=== PATIENT | female | born 1940 | race Caucasian/White ===

== ENCOUNTER 2017-06-13 08:30 | Outpatient (CLI) | payer MEDICARE ==
[2017-06-13 10:32] LABS: PTT 26.5 SEC (22.9-36.1); Prothrombin Time 13.3 SEC (12.0-14.7)
[2017-06-13 10:37] LABS: Anion Gap 9 mmol/L (10-20); BUN (Urea Nitrogen) 19 mg/dL (9.8-20.1); Calc. Creatinine Clearance 0 mL/min (70-130); Calcium 10.2 mg/dL (7.8-10.44); Carbon Dioxide 32 mmol/L (23-31); Chloride 100 mmol/L (98-107); Estimated GFR-MDRD 72
[2017-06-13 11:09] LABS: Bilirubin Negative (Negative); Blood, Urine Negative (Negative); Glucose, Urine (Dipstick) Negative (Negative); Ketone, Urine Negative (Negative); Nitrite Negative (Negative); Protein, Urine (Dipstick) Negative (Neg-Trace); Urobilinogen 0.2 mg/dL (0.2-1.0)
[2017-06-13 11:13] LABS: Bacteria/HPF None Seen HPF (None Seen); Hyaline Casts/LPF 0-3 HYALINE CAST LPF (0-3 Hyaline); RBC/HPF 0-3 HPF (0-3); Squamous Epithelial None Seen HPF (0-3); WBC/HPF None Seen HPF (0-3)
[2017-06-13 11:28] LABS: #Eosinphils 0.1 thou/uL (0.0-0.7); #Lymphocytes 2.1 thou/uL (1.20-3.40); #Monocytes 0.6 thou/uL (0.11-0.59); #Neutrophils 3.6 thou/uL (1.40-6.50); %Basophils 0.5 % (0.0-1.0); %Eosinophils 1.7 % (0.0-10.0); %Lymphocytes 32.2 % (21.0-51.0); %Monocytes 9.2 % (0.0-10.0); Hematocrit 46.4 % (36.0-47.0); Macrocytosis SLIGHT = 6-15 cells (100X) (0-5/hpf); Mean Platelet Volume 8.1 fL (7.4-10.4); Red Blood Cell (RBC) Count 4.33 mill/uL (4.20-5.40); White Blood Cell (WBC) Count 6.4 thou/uL (4.8-10.8)
--- NOTE | 2017-06-13 13:52 | RAD ---
CHEST PA AND LATERAL: History: 76-year-old female for pre-operative evaluation. Comparison: 02-16-16 FINDINGS: Atherosclerotic ectatic changes of the aorta. Old granulomatous disease on the right side. Mild bila teral hyperinflation and chronic changes. No confluent pneumonia, overt edema, or pleural effusion. IMPRESSION: Hyperinflation and chronic lung changes with old granulomatous disease and atherosclerotic ectatic c hanges of the aorta, stable. No acute process. POS: [facility]
== END 2017-06-13 08:31 | disposition home or self-care (01) ==
LOC: LABBT 08:30
PROVIDERS: ATTEND Orthopaedic Surgery
DX: Z01.818 Encounter for other preprocedural examination (principal); M16.12 Unilateral primary osteoarthritis, left hip
CPT/HCPCS: 71020; 80048; 81001; 85025; 85610; 85730; 86850; 86900; 86901; 87081

== ENCOUNTER 2017-08-10 08:00 | Outpatient (CLI) | payer MEDICARE | END 2017-08-10 08:01 | disposition home or self-care (01) | LOC: BICMAMMO 08:00 | PROVIDERS: ATTEND Internal Medicine | DX: Z12.31 Encounter for screening mammogram for malignant neoplasm of breast (principal) | CPT/HCPCS: 77063; G0202; 77067 ==

== ENCOUNTER 2018-08-21 11:44 | Outpatient (CLI) | payer MEDICARE | END 2018-08-21 11:45 | disposition home or self-care (01) | LOC: BICMAMMO 11:44 | PROVIDERS: ATTEND Internal Medicine | DX: Z12.31 Encounter for screening mammogram for malignant neoplasm of breast (principal) | CPT/HCPCS: 77063; 77067 ==

== ENCOUNTER 2018-09-07 09:56 | Outpatient (CLI) | payer MEDICARE ==
[2018-09-07] MEDS ORDERED: ISOVUE-370 76%-LOCM 1 ML ONE (10:09)
--- NOTE | 2018-09-07 14:30 | CT ---
CT PELVIS WITH AND WITHOUT CONTRAST: Date: 09-07-18 History: Right groin mass Technique: Axial CT imaging at 5 mm intervals through the pelvis with and without contrast obtained. FINDINGS: There is atherosclerotic calcification of the infrarenal abdominal aorta and the pelvic arterial bran ches in the region of bilateral common iliac arteries. Partially imaged renal cyst suspected within the medial aspect of the right kidney. However, given in complete assessment, renal ultrasound is advised. This areas of hypodensity measures at least 1.9 cm. Limited assessment of the bowel demonstrates diverticulosis of sigmoid colon and imaged descending co jayson with no evidence for diverticulitis. Bilateral total hip arthroplasties are present. Evaluation of these arthroplasties and of the pelvis and proximal thighs is limited secondary to marked streak artifact. There is fluid expanding the iliopsoas bursa. This is seen at the axial level of the common iliac art [place] and vein just lateral to the vasculature. It then extends superiorly into the pelvis, measuring a t least 8 cm in craniocaudal dimension and up to 5.9 cm in craniocaudal dimension. There is a fluid collection lateral to the proximal femur on the right as well, epicenter in the aquilino on of the greater trochanter and just superior to the greater trochanter. This is poorly assessed sec ondary to streak artifact and measures at least 5.8 cm in transverse dimension. This suggests fluid w ithin an expanded trochanteric bursa. Intraarticular fluid cannot be excluded secondary to streak art ifact and post-operative changes associated with the joint capsule. Limited assessment of the osseous structures demonstrates no acute findings. IMPRESSION: 1. Fluid seen within expanded iliopsoas bursa and trochanteric bursa on the right. The volume of flui d in these region is much greater than typically seen. Findings may be on the basis of sterile or inf ected bursitis. Intraarticular involvement cannot be excluded. Clinical correlation is essential. If clinically warranted, accessing the fluid in the region in the greater trochanter could be performed with ultrasound or CT guidance. 2. Incompletely imaged hypodensity within the midpole of the right kidney medially. A cyst is favored but this in incompletely assessed and thus, renal ultrasound advised. Ivy Mccullough made aware at the time of dictation on 09/07/2018 POS: [facility]
== END 2018-09-07 09:57 | disposition home or self-care (01) ==
LOC: BICCT 09:56
PROVIDERS: ATTEND Internal Medicine Cardiovascular Disease
DX: R19.00 Intra-abdominal and pelvic swelling, mass and lump, unspecified site (principal); N28.89 Other specified disorders of kidney and ureter
CPT/HCPCS: 72194; 82565

== ENCOUNTER 2018-09-18 08:19 | Day surgery (SDC) | payer MEDICARE ==
[2018-09-17 14:30] VITALS: BMI 25.1
[2018-09-18 08:38] LABS: Prothrombin Time 13.1 SEC (12.0-14.7)
[2018-09-18 08:39] LABS: PTT 25.8 SEC (22.9-36.1)
[2018-09-18 08:48] LABS: Hemoglobin 14.9 g/dL (12.0-16.0); Mean Corpuscular HGB CONC 33.1 g/dL (32.0-36.0); Mean Platelet Volume 8.2 fL (7.4-10.4); Platelet Count 204 thou/uL (130-400); RBC Distribution Width 11.2 % (11.5-14.5); Red Blood Cell (RBC) Count 4.25 mill/uL (4.20-5.40); White Blood Cell (WBC) Count 5.7 thou/uL (4.8-10.8)
[2018-09-18 10:03] VITALS: BP 141/72; TEMP 97.5
--- NOTE | 2018-09-18 12:29 | CT ---
CT GUIDED RIGHT PELVIC FLUID COLLECTION DRAINAGE: HISTORY: Right groin mass. Fluid distention of the iliopsoas bursa. Leg discomfort. TECHNIQUE: After explaining the procedure and answering all questions, limited CT imaging of the pelvis was perf ormed. A right anterolateral approach was planned. Sterile technique, buffered local anesthesia, CT guidance, and a right anterior approach were used to carefully advance a 19 gauge Yueh needle and catheter into the inferior margin of the right groin fl uid collection. Approximately 50 mL of medium slightly cloudy yellow fluid was aspirated and eventua lly submitted to pathology for evaluation. Additional fluid was not able to be drained at that locat ion. Some fluid did remain on the imaging. A slightly more superior approach was used to advance a 19 gauge trocar needle into the fluid pocket just anterior to the right iliacus muscle. An additional 45 mL of fluid was drained and submitted to pathology for evaluation. The needle was removed. Post procedure imaging showed complete decompres luiza of the fluid collection. The patient tolerated the procedure well and was returned to the [facility] area in good condition for further monitoring. IMPRESSION: Technically successful CT guided drainage of the right iliopsoas fluid collection. Pathology is pend ing. POS: [facility]
== END 2018-09-18 11:10 | disposition home or self-care (01) ==
LOC: RAD 08:19
PROVIDERS: ATTEND Orthopaedic Surgery
PROC: 0S993ZX Drainage of Right Hip Joint, Percutaneous Approach, Diagnostic (ICD-10-PCS; principal; 2018-09-18)
DX: M70.71 Other bursitis of hip, right hip (principal); Z79.82 Long term (current) use of aspirin; Z79.899 Other long term (current) drug therapy; Z88.5 Allergy status to narcotic agent
CPT/HCPCS: 36415; 77012; 85027; 85610; 85730; 87070; 87205

== ENCOUNTER 2018-11-08 07:36 | Outpatient (CLI) | payer MEDICARE ==
--- NOTE | 2018-11-08 09:14 | MRI ---
MRI CERVICAL SPINE: Multiplanar, multisequential imaging of the cervical spine was obtained. INDICATION: Neck pain and cervical radiculopathy. FINDINGS: Cervical vertebrae maintain normal height and alignment. There are degenerative disk changes through out the cervical spine with loss of disk space at all levels below C3. Vertebral body signal is norm ally maintained. At C3-4, posterior disk bulge and spondylosis flatten the thecal sac and efface the anterior subarach noid space. Mild left foraminal encroachment due to uncinate hypertrophy. At C4-5, posterior disk bulge with spondylosis efface the anterior subarachnoid space. No significan t cord impingement. Bilateral foraminal narrowing due to facet and uncinate hypertrophy. At C5-6, mild disk bulge with spondylosis flatten the thecal sac and efface the anterior subarachnoid space. No significant cord impingement. Mild right foraminal narrowing due to uncinate hypertrophy . At C6-7, there is a slight anterolisthesis measured at 3 mm. There is posterior disk bulge with spon dylosis. These changes efface the anterior subarachnoid space; however, no significant cord impingem ent. Mild left foraminal encroachment due to uncinate hypertrophy. Cord signal is normal. IMPRESSION: Degenerative disk changes throughout the cervical spine from C3 through C7 as described above. Poste rior disk bulge and spondylitic changes at all levels effacing the anterior subarachnoid space with m ild foraminal encroachment as described above. POS: [facility]
== END 2018-11-08 07:37 | disposition home or self-care (01) ==
LOC: TBSIIMAG 07:36
PROVIDERS: ATTEND Neurological Surgery
DX: M50.11 Cervical disc disorder with radiculopathy, high cervical region (principal); M47.22 Other spondylosis with radiculopathy, cervical region
CPT/HCPCS: 72141

== ENCOUNTER 2019-10-03 09:31 | Outpatient (CLI) | payer MEDICARE ==
--- NOTE | 2019-10-03 10:30 | MMO ---
Bilateral MAMMO Bilat Screen [facility]. CLINICAL HISTORY: Patient is 78 years old and is seen for screening. The patient has no family history of breast cancer. The patient has no personal history of cancer. VIEWS: The views performed were: bilateral craniocaudal with tomosynthesis and bilateral mediolateral oblique with tomosynthesis. FILMS COMPARED: The present examination has been compared to prior imaging studies performed at [facility] on 06/15/2015, 07/13/2016, 08/10/2017 and 08/21/2018. This study has been interpreted with the assistance of computer-aided detection. MAMMOGRAM FINDINGS: There are scattered fibroglandular densities. There are no suspicious masses, suspicious calcifications, or new areas of architectural distortion. IMPRESSION: THERE IS NO MAMMOGRAPHIC EVIDENCE OF MALIGNANCY. A ROUTINE FOLLOW-UP MAMMOGRAM IN 1 YEAR IS RECOMMENDED. THE RESULTS OF THIS EXAM WERE SENT TO THE PATIENT. ACR BI-RADS Category 1 - Negative MAMMOGRAPHY NOTE: 1. A negative mammogram report should not delay a biopsy if a dominant of clinically suspicious mass is present. 2. Approximately 10% to 15% of breast cancers are not detected by mammography. 3. Adenosis and dense breasts may obscure an underlying neoplasm. Reported by: JESSIAC WILDER MD Electonically Signed: [id number]
--- NOTE | 2019-10-03 11:52 | BD ---
DEXA BONE DENSITY STUDY: Date: 10/03/2019 HISTORY: Postmenopausal. FINDINGS: Right Forearm: BMD (g/cm2) / 0.590 T-Score: -0.7 Mid 0.397 T-Score: -3.8 Distal 0.368 T-Score: -1.3 Total 0.420 T-Score: -2.9 Left Forearm: 08/16 0.597 T-Score: -1.7 Mid 0.397 T-Score: -3.8 Distal 0.413 T-Score: -0.5 IMPRESSION: Osteopenia of the right and left forearm. POS: [facility]
== END 2019-10-03 09:32 | disposition home or self-care (01) ==
LOC: BICMAMMO 09:31
PROVIDERS: ATTEND Internal Medicine
DX: Z12.31 Encounter for screening mammogram for malignant neoplasm of breast (principal); Z13.820 Encounter for screening for osteoporosis; M94.9 Disorder of cartilage, unspecified; M81.0 Age-related osteoporosis without current pathological fracture
CPT/HCPCS: 77063; 77067; 77080

== ENCOUNTER 2020-10-07 11:05 | Outpatient (CLI) | payer MEDICARE ==
--- NOTE | 2020-10-07 13:56 | MMO ---
Bilateral MAMMO Bilat Screen [facility]. CLINICAL HISTORY: Patient is 79 years old and is seen for screening. The patient has no family history of breast cancer. The patient has no personal history of cancer. VIEWS: The views performed were: bilateral craniocaudal with tomosynthesis and bilateral mediolateral oblique with tomosynthesis. FILMS COMPARED: The present examination has been compared to prior imaging studies performed at [facility] on 07/13/2016, 08/10/2017, 08/21/2018 and 10/03/2019. This study has been interpreted with the assistance of computer-aided detection. MAMMOGRAM FINDINGS: There are scattered fibroglandular densities. There are no suspicious masses, suspicious calcifications, or new areas of architectural distortion. IMPRESSION: THERE IS NO MAMMOGRAPHIC EVIDENCE OF MALIGNANCY. A ROUTINE FOLLOW-UP MAMMOGRAM IN 1 YEAR IS RECOMMENDED. THE RESULTS OF THIS EXAM WERE SENT TO THE PATIENT. ACR BI-RADS Category 1 - Negative MAMMOGRAPHY NOTE: 1. A negative mammogram report should not delay a biopsy if a dominant of clinically suspicious mass is present. 2. Approximately 10% to 15% of breast cancers are not detected by mammography. 3. Adenosis and dense breasts may obscure an underlying neoplasm. Reported by: SHAHEEN JOHN MD Electonically Signed: [id number]
== END 2020-10-07 11:06 | disposition home or self-care (01) ==
LOC: BICMAMMO 11:05
PROVIDERS: ATTEND Internal Medicine
DX: Z12.31 Encounter for screening mammogram for malignant neoplasm of breast (principal)
CPT/HCPCS: 77063; 77067

== ENCOUNTER 2021-07-05 09:29 | Outpatient (CLI) | payer MEDICARE ==
[2021-07-05] MEDS ORDERED: Iopamidol 370 76% 100 ML VIAL ONE (10:57)
== END 2021-07-05 09:30 | disposition home or self-care (01) ==
LOC: CT 09:29
PROVIDERS: ATTEND Surgery
DX: K63.89 Other specified diseases of intestine (principal); N28.1 Cyst of kidney, acquired; K57.30 Diverticulosis of large intestine without perforation or abscess without bleeding
CPT/HCPCS: 74177; 82565

== ENCOUNTER 2021-07-09 11:52 | Outpatient (CLI) | payer MEDICARE ==
[2021-07-09 23:20] LABS: SARS-CoV-2 PCR by NAA Not Detected (NotDetected)
== END 2021-07-09 11:53 | disposition home or self-care (01) ==
LOC: LABBT 11:52
PROVIDERS: ATTEND Surgery
DX: Z01.812 Encounter for preprocedural laboratory examination (principal); K63.89 Other specified diseases of intestine; Z20.822 Contact with and (suspected) exposure to COVID-19
CPT/HCPCS: U0003; U0005

== ENCOUNTER 2021-07-09 12:00 | Inpatient (IN) | payer MEDICARE ==
[2021-07-13] MEDS ORDERED: cefOXitin Sodium/Dextrose 2 GM/50 ML BAG ONE (08:17)
[2021-07-13] MEDS ORDERED: Lidocaine 1% (PF) 30 ML VIAL ONE (09:16)
[2021-07-13] MEDS ORDERED: Fentanyl 100 MCG/2 ML VIAL ONE ×4 (09:16→14:56)
[2021-07-13] MEDS ORDERED: Midazolam HCl 2 mg/2 ml Vial ONE (09:16)
[2021-07-13] MEDS ORDERED: Phenylephrine 10 MG/ML VIAL ONE (11:24)
[2021-07-13] MEDS ORDERED: Dexamethasone 20 MG/5 ML VIAL ONE (11:25)
[2021-07-13] MEDS ORDERED: Ondansetron PF 4 MG/2 ML Vial ONE (11:25)
[2021-07-13] MEDS ORDERED: Bupivacaine HCl 0.5%/Epinephrine 1:200,000/PF 30 ml Vial ONE ×2 (11:25)
[2021-07-13] MEDS ORDERED: Glycopyrrolate 0.2 MG/ML 5 ML SYRINGE ONE (11:25)
[2021-07-13] MEDS ORDERED: Lidocaine 1% PF 5 ML VIAL ONE (11:25)
[2021-07-13] MEDS ORDERED: PHENYLEPHRINE-NS 100 MCG/ML 10 ML SYRINGE ONE (11:25)
[2021-07-13] MEDS ORDERED: PROPOFOL 200 MG/20 ML VIAL ONE (11:25)
[2021-07-13] MEDS ORDERED: Rocuronium Bromide 10 MG/ML (10ML VIAL) ONE (11:25)
[2021-07-13] MEDS ORDERED: Ondansetron HCl/PF 4 MG/2 ML Vial IVP PRN (12:35)
[2021-07-13] MEDS ORDERED: Promethazine HCl 25 MG/ML VIAL IM PRN ×2 (12:35→15:10)
[2021-07-13] MEDS ORDERED: Promethazine HCl 25 MG/ML VIAL IVPB PRN (12:35)
[2021-07-13] MEDS ORDERED: Fentanyl 100 MCG/2 ML VIAL SLOW IVP PRN (15:10)
[2021-07-13] MEDS ORDERED: cefOXitin Sodium 1 GM in Sodium Chloride 0.9% 100 ML IVPB SCH (15:10)
[2021-07-13] MEDS ORDERED: hydrALAZINE 20 MG/ML VIAL SLOW IVP PRN (15:10)
[2021-07-13] MEDS ORDERED: Ondansetron PF 4 MG/2 ML Vial IVP PRN (15:10)
[2021-07-13 15:30] VITALS: BMI 23.0
[2021-07-13] MEDS ORDERED: Methyl Salicylate/Menthol 85 GM TUBE TOP PRN (16:07)
[2021-07-13] MEDS: D5 1/2 NS w/20 mEq KCL 1,000 ML IV SCH (18:38)
[2021-07-13] MEDS: traMADol HCl 50 MG TAB PO PRN (18:46)
[2021-07-13] MEDS: Montelukast Sodium 10 mg Tablet PO SCH (22:49)
[2021-07-13] MEDS: Famotidine/PF 20 mg/2ml Vial SLOW IVP SCH (22:49)
[2021-07-13] MEDS: cefOXitin Sodium 1 GM in Sodium Chloride 0.9% 100 ML IVPB SCH (22:54)
[2021-07-13] MEDS: Acetaminophen 500 MG TAB PO PRN (22:55)
[2021-07-13] MEDS: Famotidine 20 MG TAB PO SCH (23:21)
[2021-07-14] MEDS: traMADol HCl 50 MG TAB PO PRN ×4 (02:48→23:58)
[2021-07-14] MEDS: cefOXitin Sodium 1 GM in Sodium Chloride 0.9% 100 ML IVPB SCH (05:08)
[2021-07-14] MEDS: Levothyroxine Sodium 50 MCG TAB PO SCH (05:08)
[2021-07-14] MEDS: D5 1/2 NS w/20 mEq KCL 1,000 ML IV SCH (05:16)
[2021-07-14 06:13] LABS: #Lymphocytes 1.4 thou/uL (1.20-3.40); #Monocytes 0.9 thou/uL (0.11-0.59); #Neutrophils 6.8 thou/uL (1.40-6.50); %Basophils 0.2 % (0.0-1.0); %Eosinophils 0.1 % (0.0-10.0); %Lymphocytes 15.6 % (21.0-51.0); %Monocytes 9.9 % (0.0-10.0); %Neutrophils 74.2 % (42.0-75.0); Hemoglobin 12.5 g/dL (12.0-16.0); Mean Corpuscular HGB CONC 34.1 g/dL (32.0-36.0); Mean Corpuscular Hemoglobin 36.4 pg (27.0-31.0); Mean Platelet Volume 7.5 fL (7.4-10.4); Platelet Count 208 thou/uL (130-400); RBC Distribution Width 11.8 % (11.5-14.5); Red Blood Cell (RBC) Count 3.45 mill/uL (4.20-5.40); White Blood Cell (WBC) Count 9.2 thou/uL (4.8-10.8)
[2021-07-14 06:31] LABS: Anion Gap 11 mmol/L (10-20); BUN (Urea Nitrogen) 9 mg/dL (9.8-20.1); Calc. Creatinine Clearance 52 mL/min (70-130); Calcium 8.5 mg/dL (7.8-10.44); Carbon Dioxide 24 mmol/L (23-31); Chloride 102 mmol/L (98-107); Glucose 141 mg/dL (83-110); Potassium 4.4 mmol/L (3.5-5.1); Sodium 133 mmol/L (136-145)
[2021-07-14] MEDS: Acetaminophen 500 MG TAB PO PRN ×3 (08:47→23:58)
[2021-07-14] MEDS: Famotidine 20 MG TAB PO SCH ×2 (08:48→19:45)
[2021-07-14] MEDS: Enoxaparin Sodium 40 MG/0.4 ML SYRINGE SC SCH (08:49)
[2021-07-14] MEDS: Amlodipine 5 MG TAB PO SCH (08:55)
[2021-07-14] MEDS: Famotidine/PF 20 mg/2ml Vial SLOW IVP SCH ×2 (08:58→19:41)
[2021-07-14] MEDS ORDERED: D5 1/2 NS w/20 mEq KCL 1,000 ML IV SCH (11:32)
[2021-07-14] MEDS: Montelukast Sodium 10 mg Tablet PO SCH (19:45)
[2021-07-15] MEDS: Levothyroxine Sodium 50 MCG TAB PO SCH (05:47)
[2021-07-15] MEDS: traMADol HCl 50 MG TAB PO PRN (06:24)
[2021-07-15] MEDS: Acetaminophen 500 MG TAB PO PRN (06:24)
[2021-07-15] MEDS: Famotidine 20 MG TAB PO SCH (09:49)
[2021-07-15] MEDS: Amlodipine 5 MG TAB PO SCH (09:49)
[2021-07-15] MEDS: Enoxaparin Sodium 40 MG/0.4 ML SYRINGE SC SCH (09:50)
[2021-07-15] MEDS: Famotidine/PF 20 mg/2ml Vial SLOW IVP SCH (09:50)
[2021-07-15 11:20] VITALS: BP 132/66; TEMP 98.2
== END 2021-07-15 13:05 | disposition home or self-care (01) | DRG 331 ==
LOC: EDSTATUS 12:00 → SURG A 07-13 07:52 → SURG B 07-13 17:43
PROVIDERS: ADMIT Surgery; ATTEND Surgery
PROC: 0DBF4ZZ Excision of Right Large Intestine, Percutaneous Endoscopic Approach (ICD-10-PCS; principal; 2021-07-13)
PROC: 8E0WXBZ Computer Assisted Procedure of Trunk Region (ICD-10-PCS; 2021-07-13)
DX: C18.0 Malignant neoplasm of cecum (principal); Z20.822 Contact with and (suspected) exposure to COVID-19; E03.9 Hypothyroidism, unspecified; M35.3 Polymyalgia rheumatica; K58.9 Irritable bowel syndrome, unspecified; M19.90 Unspecified osteoarthritis, unspecified site; H26.9 Unspecified cataract; J45.909 Unspecified asthma, uncomplicated; Z96.643 Presence of artificial hip joint, bilateral; Z96.651 Presence of right artificial knee joint; I25.10 Atherosclerotic heart disease of native coronary artery without angina pectoris; Z79.890 Hormone replacement therapy; Z79.82 Long term (current) use of aspirin; Z79.899 Other long term (current) drug therapy; Z90.710 Acquired absence of both cervix and uterus; Z88.5 Allergy status to narcotic agent
CPT/HCPCS: 36415; 36416; 80048; 85025; 88309; 88312; 88342; J0694; J1100; J1650; J2001; J2250; J2370; J2405; J2704; J3010; J3480; J3490; S0028

== ENCOUNTER 2021-08-20 10:46 | Outpatient (CLI) | payer MEDICARE ==
[2021-08-21 17:02] LABS: SARS-CoV-2 PCR by NAA Not Detected (NotDetected)
== END 2021-08-20 10:47 | disposition home or self-care (01) ==
LOC: LABBT 10:46
PROVIDERS: ATTEND Surgery
DX: Z01.812 Encounter for preprocedural laboratory examination (principal); C18.9 Malignant neoplasm of colon, unspecified; Z20.822 Contact with and (suspected) exposure to COVID-19
CPT/HCPCS: U0003; U0005

== ENCOUNTER 2021-08-25 09:01 | Day surgery (SDC) | payer MEDICARE ==
[2021-08-20 09:51] VITALS: BMI 23.3
[2021-08-25] MEDS ORDERED: Xylocaine 1% w/ Epi 1:100K 10 ML VIAL ONE (10:30)
[2021-08-25] MEDS ORDERED: Bupivacaine 0.25% 10 ML VIAL ONE (10:30)
[2021-08-25] MEDS ORDERED: Fentanyl 100 MCG/2 ML VIAL ONE (10:31)
[2021-08-25] MEDS ORDERED: Midazolam HCl 2 mg/2 ml Vial ONE (10:31)
[2021-08-25] MEDS ORDERED: ceFAZolin 2 GM/Dextrose 50 ML IVPB ONE (10:41)
[2021-08-25] MEDS ORDERED: PROPOFOL 200 MG/20 ML VIAL ONE (11:02)
== END 2021-08-25 12:30 | disposition home or self-care (01) ==
LOC: SDC 09:01
PROVIDERS: ATTEND Surgery
PROC: 0JH60WZ Insertion of Totally Implantable Vascular Access Device into Chest Subcutaneous Tissue and Fascia, Open Approach (ICD-10-PCS; principal; 2021-08-25)
PROC: 02HV33Z Insertion of Infusion Device into Superior Vena Cava, Percutaneous Approach (ICD-10-PCS; 2021-08-25)
DX: C18.9 Malignant neoplasm of colon, unspecified (principal); E03.9 Hypothyroidism, unspecified; G89.29 Other chronic pain; M54.9 Dorsalgia, unspecified; M19.90 Unspecified osteoarthritis, unspecified site; M85.80 Other specified disorders of bone density and structure, unspecified site; J45.909 Unspecified asthma, uncomplicated; G25.81 Restless legs syndrome; Z79.82 Long term (current) use of aspirin; Z79.899 Other long term (current) drug therapy; Z88.5 Allergy status to narcotic agent; Z90.49 Acquired absence of other specified parts of digestive tract
CPT/HCPCS: 36561; 71045; C1788; J0690; J1642; J2250; J2704; J3010; S0020

== ENCOUNTER 2022-03-28 14:03 | Emergency (ER) | payer MEDICARE ==
[2022-03-28] MEDS ORDERED: traMADol HCl 50 MG TAB ONE (16:20)
[2022-03-28 16:25] LABS: #Eosinphils 0.1 thou/uL (0.0-0.7); #Lymphocytes 1.5 thou/uL (1.20-3.40); #Monocytes 0.6 thou/uL (0.11-0.59); #Neutrophils 7.3 thou/uL (1.40-6.50); %Basophils 0.5 % (0.0-1.0); %Eosinophils 0.6 % (0.0-10.0); %Lymphocytes 16.1 % (21.0-51.0); %Monocytes 6.4 % (0.0-10.0); %Neutrophils 76.4 % (42.0-75.0); Hemoglobin 13.8 g/dL (12.0-16.0); Mean Corpuscular HGB CONC 33.2 g/dL (32.0-36.0); Mean Corpuscular Hemoglobin 37.2 pg (27.0-31.0); Mean Platelet Volume 7.8 fL (7.4-10.4); Platelet Count 201 thou/uL (130-400); RBC Distribution Width 11.4 % (11.5-14.5); Red Blood Cell (RBC) Count 3.71 mill/uL (4.20-5.40); White Blood Cell (WBC) Count 9.5 thou/uL (4.8-10.8)
[2022-03-28 16:48] LABS: ALT (SGPT) 16 U/L (8-55); AST (SGOT) 23 U/L (5-34); Albumin 4.2 g/dL (3.4-4.8); Alkaline Phosphatase 112 U/L (40-110); Anion Gap 17 mmol/L (10-20); BUN (Urea Nitrogen) 20 mg/dL (9.8-20.1); Bilirubin, Total 0.7 mg/dL (0.2-1.2); CRP (Inflammatory) Less than 0.50 mg/dL (= or < 0.5); Calc. Creatinine Clearance 0 mL/min (70-130); Calcium 9.7 mg/dL (7.8-10.44); Carbon Dioxide 25 mmol/L (23-31); Chloride 100 mmol/L (98-107); Estimated GFR 73; Globulin 3.3 g/dL (2.4-3.5); Glucose 93 mg/dL (83-110); Potassium 4.5 mmol/L (3.5-5.1); Protein, Total 7.5 g/dL (5.8-8.1); Sodium 137 mmol/L (136-145)
[2022-03-29 12:34] LABS: Ref Lab Test Ordered Chromium & Cobalt; Reference Lab Name LABCORP
== END 2022-03-28 17:09 | disposition home or self-care (01) ==
LOC: ERS 14:03
DX: M25.551 Pain in right hip (principal); I10 Essential (primary) hypertension; Z79.899 Other long term (current) drug therapy; Z79.82 Long term (current) use of aspirin
CPT/HCPCS: 36415; 80053; 85025; 86140

== ENCOUNTER 2022-04-01 14:44 | Outpatient (CLI) | payer MEDICARE ==
[2022-04-01 16:48] LABS: Prothrombin Time 10.4 sec (9.5-12.1)
== END 2022-04-01 14:45 | disposition home or self-care (01) ==
LOC: LABBT 14:44
PROVIDERS: ATTEND Orthopaedic Surgery
DX: Z01.818 Encounter for other preprocedural examination (principal); T84.010A Broken internal right hip prosthesis, initial encounter
CPT/HCPCS: 85610; 87081; 93005; 93010

== ENCOUNTER 2022-05-18 13:21 | Inpatient (IN) | payer MEDICARE ==
[2022-05-18] MEDS ORDERED: Ondansetron ODT 4 MG TAB PO PRN (17:45)
[2022-05-18] MEDS ORDERED: Senokot S 8.6-50 MG TAB PO PRN (17:45)
[2022-05-18] MEDS ORDERED: Fentanyl 100 MCG/2 ML VIAL ONE (18:10)
[2022-05-18 18:16] LABS: Bilirubin Negative (Negative); Blood, Urine Negative (Negative); Clarity Clear (Clear); Glucose, Urine (Dipstick) Normal (Negative); Ketone, Urine 10 mg/dL (Negative); Leukocyte Negative Leu/uL (Negative); Nitrite Negative (Negative); Protein, Urine (Dipstick) Negative (Neg-Trace); Specific Gravity, Urine 1.013 (1.002-1.036); Urobilinogen Normal mg/dL (Less than 2)
[2022-05-18 18:18] LABS: #Basophils 0.1 thou/uL (0.0-0.2); #Eosinphils 0.1 thou/uL (0.0-0.7); #Lymphocytes 1.8 thou/uL (1.20-3.40); #Monocytes 0.6 thou/uL (0.11-0.59); #Neutrophils 6.5 thou/uL (1.40-6.50); %Basophils 0.6 % (0.0-1.0); %Eosinophils 0.8 % (0.0-10.0); %Lymphocytes 20.1 % (21.0-51.0); %Monocytes 6.6 % (0.0-10.0); %Neutrophils 71.9 % (42.0-75.0); Hemoglobin 13.4 g/dL (12.0-16.0); Mean Corpuscular HGB CONC 32.4 g/dL (32.0-36.0); Mean Corpuscular Hemoglobin 34.9 pg (27.0-31.0); Mean Platelet Volume 8.2 fL (7.4-10.4); Platelet Count 292 thou/uL (130-400); RBC Distribution Width 11.8 % (11.5-14.5); Red Blood Cell (RBC) Count 3.85 mill/uL (4.20-5.40); White Blood Cell (WBC) Count 9.1 thou/uL (4.8-10.8)
[2022-05-18 18:49] LABS: Anion Gap 16 mmol/L (10-20); BUN (Urea Nitrogen) 22 mg/dL (9.8-20.1); Calc. Creatinine Clearance 0 mL/min (70-130); Calcium 10.4 mg/dL (7.8-10.44); Carbon Dioxide 27 mmol/L (23-31); Chloride 98 mmol/L (98-107); Estimated GFR 77; Glucose 86 mg/dL (83-110); Sodium 137 mmol/L (136-145)
[2022-05-18] MEDS: Famotidine 20 MG TAB PO SCH (21:12)
[2022-05-18] MEDS: HYDROcodone/Acetaminophen 10/325 mg Tablet PO PRN (21:12)
[2022-05-19 00:31] LABS: SARS-CoV-2 NAA Rapid Test Not Detected (NotDetected)
[2022-05-19] MEDS: HYDROcodone/Acetaminophen 10/325 mg Tablet PO PRN ×4 (01:30→20:43)
[2022-05-19 05:24] VITALS: BMI 21.3
[2022-05-19] MEDS: Enoxaparin Sodium 30 MG/0.3 ML SYRINGE SC SCH (08:39)
[2022-05-19] MEDS: Famotidine 20 MG TAB PO SCH ×2 (08:39→20:43)
[2022-05-19] MEDS ORDERED: fentaNYL Citrate/PF 100 MCG/2 ML SYRINGE ONE (10:15)
[2022-05-19] MEDS ORDERED: Propofol 1,000 MG/100 ML VIAL IV ONE (10:16)
[2022-05-19] MEDS ORDERED: Propofol 500 MG/50 ML VIAL ONE (10:16)
[2022-05-19] MEDS ORDERED: Ketamine 50 MG/ML (10ML VIAL) ONE (10:21)
[2022-05-19] MEDS ORDERED: Glycopyrrolate 0.2 MG/ML 5 ML SYRINGE ONE (10:25)
[2022-05-19] MEDS ORDERED: PHENYLEPHRINE-NS 100 MCG/ML 10 ML SYRINGE ONE (10:25)
[2022-05-20] MEDS: HYDROcodone/Acetaminophen 10/325 mg Tablet PO PRN ×2 (05:29→09:48)
[2022-05-20] MEDS: Famotidine 20 MG TAB PO SCH ×2 (09:48→20:42)
[2022-05-20] MEDS: Enoxaparin Sodium 30 MG/0.3 ML SYRINGE SC SCH (09:48)
[2022-05-20] MEDS ORDERED: Non-Formulary Item 1 EACH (Benzonatate [Benzonatate] 200 MG Capsule) PO PRN (11:47)
[2022-05-20] MEDS ORDERED: traMADol HCl 50 MG TAB PO PRN ×2 (11:47→12:26)
[2022-05-20] MEDS ORDERED: HYDROcodone/Acetaminophen 7.5/325 mg Tablet PO PRN (12:15)
[2022-05-20] MEDS ORDERED: Benzonatate 100 MG CAP PO PRN (12:20)
[2022-05-20] MEDS: HYDROcodone/Acetaminophen 7.5/325 mg Tablet PO PRN (18:07)
[2022-05-20] MEDS: Vit A,C & E/Lutein/Minerals Tablet PO SCH (20:41)
[2022-05-20] MEDS: Fish Oil 1,000 MG CAP PO SCH (20:41)
[2022-05-20] MEDS: Calcium Carbonate 600 MG + Vit D TAB PO SCH (20:41)
[2022-05-20] MEDS: Montelukast Sodium 10 mg Tablet PO SCH (20:41)
[2022-05-20] MEDS ORDERED: Non-Formulary Item 1 EACH (Glucosam/Chondr-Msm1/D3/C/Mang [Glucosamine Chondroitin Comple PO SCH (21:00)
[2022-05-20] MEDS ORDERED: CRANBERRY FRUIT EXTRACT 500 MG PO SCH (21:00)
[2022-05-20] MEDS ORDERED: Non-Formulary Item 1 EACH (Turmeric Root Extract [Turmeric] 500 MG Capsule) PO SCH (21:00)
[2022-05-20] MEDS ORDERED: [UNRECOGNIZED DRUG - OTHER] PO SCH (21:00)
[2022-05-20] MEDS ORDERED: CALCIUM CITRATE PO SCH (21:00)
[2022-05-20] MEDS ORDERED: VITAMIN D3 E PO SCH (21:00)
[2022-05-20] MEDS: traMADol HCl 50 MG TAB PO PRN (23:52)
[2022-05-21] MEDS: HYDROcodone/Acetaminophen 7.5/325 mg Tablet PO PRN (04:56)
[2022-05-21] MEDS: Amlodipine 5 MG TAB PO SCH (08:32)
[2022-05-21] MEDS: Vit A,C & E/Lutein/Minerals Tablet PO SCH ×2 (08:33→21:03)
[2022-05-21] MEDS: Famotidine 20 MG TAB PO SCH ×2 (08:33→21:03)
[2022-05-21] MEDS: Multivit, Therapeutic 1 TAB PO SCH (08:33)
[2022-05-21] MEDS: Calcium Carbonate 600 MG + Vit D TAB PO SCH ×2 (08:33→21:03)
[2022-05-21] MEDS: Enoxaparin Sodium 30 MG/0.3 ML SYRINGE SC SCH (08:33)
[2022-05-21] MEDS: traMADol HCl 50 MG TAB PO PRN (08:38)
[2022-05-21] MEDS ORDERED: Levothyroxine Sodium 50 MCG TAB PO SCH (09:00)
[2022-05-21] MEDS ORDERED: Non-Formulary Item 1 EACH (Multivitamin [Multi-Vitamin Daily] 1 TABLET Tablet) PO SCH (09:00)
[2022-05-21] MEDS ORDERED: Aspirin 81 mg Enteric Coated Tablet PO SCH (09:00)
[2022-05-21] MEDS: [Glucosamine Chondroitin Comple DT SCH ×2 (15:20→15:21)
[2022-05-21] MEDS: Gabapentin 300 MG CAP PO SCH (21:03)
[2022-05-21] MEDS: Montelukast Sodium 10 mg Tablet PO SCH (21:03)
[2022-05-21] MEDS: Fish Oil 1,000 MG CAP PO SCH (21:03)
[2022-05-21] MEDS: Aspirin 81 mg Enteric Coated Tablet PO SCH (21:03)
[2022-05-22] MEDS: Levothyroxine Sodium 50 MCG TAB PO SCH (05:17)
[2022-05-22] MEDS: traMADol HCl 50 MG TAB PO PRN ×2 (05:17→20:24)
[2022-05-22] MEDS: Calcium Carbonate 600 MG + Vit D TAB PO SCH ×2 (09:03→20:25)
[2022-05-22] MEDS: Enoxaparin Sodium 30 MG/0.3 ML SYRINGE SC SCH (09:04)
[2022-05-22] MEDS: Multivit, Therapeutic 1 TAB PO SCH (09:04)
[2022-05-22] MEDS: Famotidine 20 MG TAB PO SCH ×2 (09:04→20:25)
[2022-05-22] MEDS: Vit A,C & E/Lutein/Minerals Tablet PO SCH ×2 (09:04→20:25)
[2022-05-22] MEDS: Amlodipine 5 MG TAB PO SCH (09:10)
[2022-05-22] MEDS: Aspirin 81 mg Enteric Coated Tablet PO SCH (20:25)
[2022-05-22] MEDS: Fish Oil 1,000 MG CAP PO SCH (20:25)
[2022-05-22] MEDS: Gabapentin 300 MG CAP PO SCH (20:25)
[2022-05-22] MEDS: Montelukast Sodium 10 mg Tablet PO SCH (20:25)
[2022-05-23] MEDS: Levothyroxine Sodium 50 MCG TAB PO SCH (06:14)
[2022-05-23] MEDS: Calcium Carbonate 600 MG + Vit D TAB PO SCH ×2 (08:08→20:48)
[2022-05-23] MEDS: Enoxaparin Sodium 30 MG/0.3 ML SYRINGE SC SCH (08:08)
[2022-05-23] MEDS: Multivit, Therapeutic 1 TAB PO SCH (08:08)
[2022-05-23] MEDS: Famotidine 20 MG TAB PO SCH ×2 (08:08→20:49)
[2022-05-23] MEDS: Vit A,C & E/Lutein/Minerals Tablet PO SCH ×2 (08:08→20:48)
[2022-05-23] MEDS: Amlodipine 5 MG TAB PO SCH (08:09)
[2022-05-23] MEDS ORDERED: CEFAZOLIN 2 GM in Sodium Chloride 0.9% 100 ML IVPB SCH (12:00)
[2022-05-23] MEDS: Aspirin 81 mg Enteric Coated Tablet PO SCH (20:47)
[2022-05-23] MEDS: Montelukast Sodium 10 mg Tablet PO SCH (20:48)
[2022-05-23] MEDS: Fish Oil 1,000 MG CAP PO SCH (20:49)
[2022-05-23] MEDS: Gabapentin 300 MG CAP PO SCH (20:49)
[2022-05-24] MEDS: Levothyroxine Sodium 50 MCG TAB PO SCH (05:53)
[2022-05-24] MEDS: Vancomycin 1.5 GRAM/300 ML BAG 1.5 GM in Premix Bag 1 BAG IVPB SCH ×2 (08:36→21:17)
[2022-05-24] MEDS: Famotidine 20 MG TAB PO SCH ×2 (08:36→21:15)
[2022-05-24] MEDS: Multivit, Therapeutic 1 TAB PO SCH (08:37)
[2022-05-24] MEDS: Calcium Carbonate 600 MG + Vit D TAB PO SCH ×2 (08:37→21:17)
[2022-05-24] MEDS: Vit A,C & E/Lutein/Minerals Tablet PO SCH ×2 (08:37→21:17)
[2022-05-24] MEDS: Amlodipine 5 MG TAB PO SCH (08:37)
[2022-05-24] MEDS ORDERED: Sodium Chloride 0.9% 100 ML ONE ×2 (09:25→11:36)
[2022-05-24] MEDS ORDERED: Tranexamic Acid 1,000 MG/10 ML VIAL ONE (09:25)
[2022-05-24] MEDS ORDERED: fentaNYL Citrate/PF 100 MCG/2 ML SYRINGE ONE (11:23)
[2022-05-24] MEDS ORDERED: Famotidine/PF 20 mg/2ml Vial ONE (11:23)
[2022-05-24] MEDS ORDERED: CEFAZOLIN 2 GM VIAL ONE (11:36)
[2022-05-24] MEDS ORDERED: Dexamethasone 20 MG/5 ML VIAL ONE (11:47)
[2022-05-24] MEDS ORDERED: ePHEDrine 50 MG/ML VIAL ONE (11:47)
[2022-05-24] MEDS ORDERED: Ondansetron PF 4 MG/2 ML Vial ONE (11:47)
[2022-05-24] MEDS ORDERED: PROPOFOL 200 MG/20 ML VIAL ONE (11:47)
[2022-05-24] MEDS ORDERED: Promethazine HCl 25 MG/ML VIAL IM PRN (12:24)
[2022-05-24] MEDS ORDERED: Promethazine HCl 25 MG/ML VIAL IVPB PRN (12:24)
[2022-05-24] MEDS ORDERED: Ondansetron HCl/PF 4 MG/2 ML Vial IVP PRN (12:24)
[2022-05-24] MEDS ORDERED: Meperidine HCl/PF 25 MG/ML VIAL SLOW IVP PRN (12:24)
[2022-05-24] MEDS ORDERED: Tranexamic Acid 1,000 MG in Sodium Chloride 0.9% 250 ML 250 ML IVPB SCH (12:30)
[2022-05-24] MEDS ORDERED: Bupivacaine PF 0.5% 30 ML VIAL ONE (12:32)
[2022-05-24] MEDS ORDERED: ePHEDrine Sulfate 50 MG/10 ML VIAL ONE (12:43)
[2022-05-24] MEDS: HYDROcodone/Acetaminophen 7.5/325 mg Tablet PO PRN ×2 (13:53→21:40)
[2022-05-24] MEDS: traMADol HCl 50 MG TAB PO PRN (18:56)
[2022-05-24] MEDS: Fish Oil 1,000 MG CAP PO SCH (21:14)
[2022-05-24] MEDS: Gabapentin 300 MG CAP PO SCH (21:16)
[2022-05-24] MEDS: Aspirin 81 mg Enteric Coated Tablet PO SCH (21:17)
[2022-05-24] MEDS: Montelukast Sodium 10 mg Tablet PO SCH (21:17)
[2022-05-25] MEDS: Levothyroxine Sodium 50 MCG TAB PO SCH (05:52)
[2022-05-25 08:19] LABS: #Eosinphils 0.1 thou/uL (0.0-0.7); #Lymphocytes 1.5 thou/uL (1.20-3.40); #Monocytes 0.9 thou/uL (0.11-0.59); #Neutrophils 8.5 thou/uL (1.40-6.50); %Basophils 0.1 % (0.0-1.0); %Eosinophils 0.5 % (0.0-10.0); %Monocytes 8.4 % (0.0-10.0); %Neutrophils 76.9 % (42.0-75.0); Hemoglobin 11.9 g/dL (12.0-16.0); Mean Corpuscular HGB CONC 32.8 g/dL (32.0-36.0); Mean Corpuscular Hemoglobin 34.9 pg (27.0-31.0); Mean Platelet Volume 7.8 fL (7.4-10.4); Platelet Count 236 thou/uL (130-400); RBC Distribution Width 11.5 % (11.5-14.5); Red Blood Cell (RBC) Count 3.41 mill/uL (4.20-5.40)
[2022-05-25] MEDS: Vancomycin 1.5 GRAM/300 ML BAG 1.5 GM in Premix Bag 1 BAG IVPB SCH ×2 (08:57→20:33)
[2022-05-25] MEDS: Vit A,C & E/Lutein/Minerals Tablet PO SCH ×2 (08:57→20:34)
[2022-05-25] MEDS: Amlodipine 5 MG TAB PO SCH (08:58)
[2022-05-25] MEDS: traMADol HCl 50 MG TAB PO PRN ×2 (08:58→16:18)
[2022-05-25] MEDS: Calcium Carbonate 600 MG + Vit D TAB PO SCH ×2 (08:58→20:36)
[2022-05-25] MEDS: Famotidine 20 MG TAB PO SCH ×2 (08:58→20:36)
[2022-05-25] MEDS: Multivit, Therapeutic 1 TAB PO SCH (08:58)
[2022-05-25] MEDS: Fish Oil 1,000 MG CAP PO SCH (20:33)
[2022-05-25] MEDS: Aspirin 81 mg Enteric Coated Tablet PO SCH (20:34)
[2022-05-25] MEDS: Montelukast Sodium 10 mg Tablet PO SCH (20:34)
[2022-05-25] MEDS: Gabapentin 300 MG CAP PO SCH (20:34)
[2022-05-25] MEDS: HYDROcodone/Acetaminophen 7.5/325 mg Tablet PO PRN (20:35)
[2022-05-26 05:10] VITALS: TEMP 97.6
[2022-05-26] MEDS: Levothyroxine Sodium 50 MCG TAB PO SCH (05:36)
[2022-05-26] MEDS: Famotidine 20 MG TAB PO SCH (09:21)
[2022-05-26] MEDS: Multivit, Therapeutic 1 TAB PO SCH (09:21)
[2022-05-26] MEDS: traMADol HCl 50 MG TAB PO PRN (09:21)
[2022-05-26] MEDS: Vit A,C & E/Lutein/Minerals Tablet PO SCH (09:21)
[2022-05-26] MEDS: Calcium Carbonate 600 MG + Vit D TAB PO SCH (09:21)
[2022-05-26] MEDS: Amlodipine 5 MG TAB PO SCH (09:23)
[2022-05-26] MEDS: Vancomycin 1.5 GRAM/300 ML BAG 1.5 GM in Premix Bag 1 BAG IVPB SCH (09:23)
[2022-05-26 12:12] VITALS: BP 133/66
[2022-05-26] MEDS: HYDROcodone/Acetaminophen 7.5/325 mg Tablet PO PRN (13:29)
== END 2022-05-26 13:59 | disposition home health service (06) | DRG 468 ==
LOC: ERS 13:21 → SURG B 17:45
PROVIDERS: ADMIT Surgery; ATTEND Surgery
PROC: 0SW909Z Revision of Liner in Right Hip Joint, Open Approach (ICD-10-PCS; 2022-05-19)
PROC: 0SP909Z Removal of Liner from Right Hip Joint, Open Approach (ICD-10-PCS; principal; 2022-05-24)
PROC: 0SUA09Z Supplement Right Hip Joint, Acetabular Surface with Liner, Open Approach (ICD-10-PCS; 2022-05-24)
DX: T84.020A Dislocation of internal right hip prosthesis, initial encounter (principal); M35.3 Polymyalgia rheumatica; Z96.643 Presence of artificial hip joint, bilateral; E03.9 Hypothyroidism, unspecified; M19.90 Unspecified osteoarthritis, unspecified site; Z20.822 Contact with and (suspected) exposure to COVID-19; Y83.8 Other surgical procedures as the cause of abnormal reaction of the patient, or of later complication, without mention of misadventure at the time of the procedure; Z90.710 Acquired absence of both cervix and uterus; Z88.5 Allergy status to narcotic agent
CPT/HCPCS: 36415; 51702; 72170; 76000; 80048; 81003; 85025; 87070; 87205; 96374; C1776; J0690; J1100; J1650; J2405; J2704; J3010; J3370; J3490; Q0162; S0020; S0028; U0002

== ENCOUNTER 2024-01-24 09:42 | Outpatient (CLI) | payer MEDICARE | END 2024-01-24 09:43 | disposition home or self-care (01) | LOC: BICMAMMO 09:42 | PROVIDERS: ATTEND Internal Medicine | DX: Z12.31 Encounter for screening mammogram for malignant neoplasm of breast (principal); Z85.038 Personal history of other malignant neoplasm of large intestine | CPT/HCPCS: 77063; 77067 ==

== ENCOUNTER 2025-06-19 10:13 | Day surgery (SDC) | payer MEDICARE ==
[2025-06-18 12:15] VITALS: BMI 24.3
[2025-06-19 11:07] LABS: #Basophils 0.05 10x3/uL (0.0-0.2); #Eosinophils 0.06 10x3/uL (0.0-0.7); #Monocytes 0.71 10x3/uL (0.11-0.59); #Neutrophils 6.17 10x3/uL (1.40-6.50); %Basophils 0.6 % (0.0-1.0); %Eosinophils 0.7 % (0.0-10.0); %Lymphocytes 17.5 % (21.0-51.0); %Monocytes 8.3 % (0.0-10.0); %Neutrophils 72.4 % (42.0-75.0); Hematocrit 43.6 % (36.0-47.0); Hemoglobin 14.2 g/dL (12.0-16.0); Mean Corpuscular Hemoglobin 34.0 pg (27.0-31.0); Mean Corpuscular Volume 104.3 fL (78.0-98.0); Platelet Count 220 10x3/uL (130-400); Red Blood Cell (RBC) Count 4.18 mill/uL (4.20-5.40); White Blood Cell (WBC) Count 8.52 10x3/uL (4.8-10.8)
[2025-06-19 11:27] LABS: Anion Gap 13 mmol/L (10-20); BUN (Urea Nitrogen) 22 mg/dL (9.8-20.1); Calc. Creatinine Clearance 55 mL/min (70-130); Calcium 9.7 mg/dL (7.8-10.44); Carbon Dioxide 28 mmol/L (23-31); Chloride 103 mmol/L (98-107); Glucose 105 mg/dL (83-110); Potassium 4.4 mmol/L (3.5-5.1); Sodium 140 mmol/L (136-145)
[2025-06-19] MEDS ORDERED: Lidocaine 1% (PF) 30 ML VIAL ONE (12:06)
[2025-06-19] MEDS ORDERED: Etomidate 40 MG (20 mL) VIAL ONE (12:06)
[2025-06-19] MEDS ORDERED: PROPOFOL 200 MG/20 ML VIAL ONE (12:40)
== END 2025-06-19 14:00 | disposition home or self-care (01) ==
LOC: SDC 10:13
PROVIDERS: ATTEND Internal Medicine Cardiovascular Disease
PROC: B245ZZ4 Ultrasonography of Left Heart, Transesophageal (ICD-10-PCS; principal; 2025-06-19)
DX: I48.91 Unspecified atrial fibrillation (principal); I10 Essential (primary) hypertension; E78.00 Pure hypercholesterolemia, unspecified; I34.0 Nonrheumatic mitral (valve) insufficiency; I35.1 Nonrheumatic aortic (valve) insufficiency; I87.2 Venous insufficiency (chronic) (peripheral); Z79.01 Long term (current) use of anticoagulants; Z79.899 Other long term (current) drug therapy; Z88.5 Allergy status to narcotic agent
CPT/HCPCS: 80048; 85025; 92960; 93005; 93312; J2003; J2704; 93010